=== PATIENT | male | born 1985 | race Caucasian/White ===

== ENCOUNTER 2018-11-18 17:49 | Emergency (ER) | payer MEDICAID ==
[~2018-11-18] VITALS: Ht 185.4 cm; Wt 108.9 kg
[2018-11-18 19:21] LABS: BASOPHILS ABSOLUTE AUTO 0.05 K/mm3 (0.00-0.23); BASOPHILS PERCENT AUTO 0 % (0-2); EOSINOPHILS ABSOLUTE AUTO 0.21 K/mm3 (0.00-0.68); EOSINOPHILS PERCENT AUTO 1 % (0-6); Hematocrit 45.8 % (37.0-53.0); Hemoglobin 15.8 g/dL (13.5-17.5); IMMATURE GRAN ABSOLUTE AUTO 0.06 K/mm3 (0.00-0.10); IMMATURE GRAN PERCENT AUTO 0 % (0-1); LYMPHOCYTES ABSOLUTE AUTO 1.93 K/mm3 (0.84-5.20); LYMPHOCYTES PERCENT AUTO 13 % (21-46); MONOCYTES ABSOLUTE AUTO 1.56 K/mm3 (0.16-1.47); MONOCYTES PERCENT AUTO 10 % (4-13); Mean Corpuscular HGB 31.7 pg (26.0-34.0); Mean Corpuscular HGB Conc 34.5 g/dL (31.5-36.5); Mean Corpuscular Volume 92 fL (80-100); Mean Platelet Volume 9.6 fL (9.1-12.4); NEUTROPHILS ABSOLUTE AUTO 11.33 K/mm3 (1.96-9.15); NEUTROPHILS PERCENT AUTO 75 % (41-73); Platelet Count 181 K/mm3 (150-400); RDW Coefficient Variation 12.6 % (11.7-14.2); RDW Standard Deviation 42.7 fL (35.1-46.3); Red Blood Cell Count 4.98 M/mm3 (4.30-5.90); White Blood Cell Count 15.14 K/mm3 (4.00-11.30)
[2018-11-18 19:41] LABS: Anion Gap 6 mmol/L (6-16); Blood Urea Nitrogen 12 mg/dL (8-24); Bun/Creatinine Ratio 12.9 (12.0-20.0); CO2, Blood 27 mmol/L (21-32); Calcium, Blood 8.5 mg/dL (8.5-10.1); Chloride, Blood 103 mmol/L (98-108); Creatinine, Blood 0.93 mg/dL (0.60-1.20); Glomerular Filtration Rate >60 (60-); Glucose, Blood 88 mg/dL (70-99); Potassium, Blood 3.9 mmol/L (3.5-5.5); Sodium, Blood 136 mmol/L (136-145)
[2018-11-18] MEDS ORDERED: Prednisone20 MG PO (20:05)
[2018-11-18] MEDS ORDERED: Cleocin HCl150 MG PO (20:57)
== END 2018-11-18 21:15 | disposition home or self-care (01) ==
LOC: ER 17:49
PROVIDERS: Physician Assistant
DX: J36 Peritonsillar abscess (principal); F17.210 Nicotine dependence, cigarettes, uncomplicated
CPT/HCPCS: 36415; 70491; 80048; 85025; 87081; 87430; 96365-59; 96375-59; 99284-25; J0295; J1100; J1885; J2405; J7030; Q9967

== ENCOUNTER 2018-11-19 23:09 | Observation (INO) | payer SELFPAY ==
[~2018-11-19] VITALS: Ht 185.4 cm; Wt 111.1 kg
[~2018-11-19 23:09] MED LIST: Cleocin HCl150 MG PO; Prednisone20 MG PO
[2018-11-20 01:15] LABS: BASOPHILS ABSOLUTE AUTO 0.03 K/mm3 (0.00-0.23); BASOPHILS PERCENT AUTO 0 % (0-2); EOSINOPHILS ABSOLUTE AUTO 0.01 K/mm3 (0.00-0.68); EOSINOPHILS PERCENT AUTO 0 % (0-6); Hematocrit 46.6 % (37.0-53.0); Hemoglobin 16.3 g/dL (13.5-17.5); IMMATURE GRAN ABSOLUTE AUTO 0.16 K/mm3 (0.00-0.10); IMMATURE GRAN PERCENT AUTO 1 % (0-1); LYMPHOCYTES ABSOLUTE AUTO 1.23 K/mm3 (0.84-5.20); LYMPHOCYTES PERCENT AUTO 6 % (21-46); MONOCYTES ABSOLUTE AUTO 0.86 K/mm3 (0.16-1.47); MONOCYTES PERCENT AUTO 5 % (4-13); Mean Corpuscular HGB 31.3 pg (26.0-34.0); Mean Corpuscular Volume 90 fL (80-100); Mean Platelet Volume 9.6 fL (9.1-12.4); NEUTROPHILS ABSOLUTE AUTO 16.93 K/mm3 (1.96-9.15); NEUTROPHILS PERCENT AUTO 88 % (41-73); Platelet Count 232 K/mm3 (150-400); RDW Coefficient Variation 12.4 % (11.7-14.2); RDW Standard Deviation 41.1 fL (35.1-46.3); White Blood Cell Count 19.22 K/mm3 (4.00-11.30)
[2018-11-20 01:33] LABS: Alanine Aminotransfer (ALT/SGP 45 U/L (12-78); Albumin, Blood 3.9 g/dL (3.4-5.0); Albumin/Globulin Ratio 0.9 (0.8-1.8); Alk Phos 78 U/L (50-136); Anion Gap 8 mmol/L (6-16); Aspartate Aminotrans (AST/SGOT 20 U/L (12-37); Bilirubin, Total 0.2 mg/dL (0.1-1.0); Blood Urea Nitrogen 19 mg/dL (8-24); Bun/Creatinine Ratio 29.1 (12.0-20.0); CO2, Blood 24 mmol/L (21-32); Chloride, Blood 108 mmol/L (98-108); Creatinine, Blood 0.65 mg/dL (0.60-1.20); Globulin, Blood 4.3 g/dL (2.2-4.0); Glomerular Filtration Rate >60 (60-); Glucose, Blood 120 mg/dL (70-99); Potassium, Blood 4.3 mmol/L (3.5-5.5); Sodium, Blood 140 mmol/L (136-145); Total Protein, Blood 8.2 g/dL (6.4-8.2)
--- NOTE | 2018-11-20 04:27 | NUR ---
SHIFT SUMMARY ED ADMIT. SETTLED INTO ROOM. PATIENT DENIES NAUSEA AND SHORTNESS OF BREATH. MEDICATED X1 FOR PAIN. PATIENT INDEPENDENT IN THE ROOM. CALL LIGHT IN REACH, WILL CONTINUE TO MONITOR UNTIL REPORT GIVEN TO ONCOMING SHIFT.
[2018-11-20 04:48] LABS: BASOPHILS ABSOLUTE AUTO 0.05 K/mm3 (0.00-0.23); BASOPHILS PERCENT AUTO 0 % (0-2); EOSINOPHILS PERCENT AUTO 0 % (0-6); Hemoglobin 15.5 g/dL (13.5-17.5); IMMATURE GRAN PERCENT AUTO 1 % (0-1); LYMPHOCYTES ABSOLUTE AUTO 1.43 K/mm3 (0.84-5.20); LYMPHOCYTES PERCENT AUTO 8 % (21-46); MONOCYTES ABSOLUTE AUTO 0.93 K/mm3 (0.16-1.47); MONOCYTES PERCENT AUTO 6 % (4-13); Mean Corpuscular HGB 31.4 pg (26.0-34.0); Mean Corpuscular HGB Conc 33.7 g/dL (31.5-36.5); Mean Platelet Volume 9.5 fL (9.1-12.4); NEUTROPHILS ABSOLUTE AUTO 14.53 K/mm3 (1.96-9.15); NEUTROPHILS PERCENT AUTO 85 % (41-73); Platelet Count 229 K/mm3 (150-400); RDW Coefficient Variation 12.5 % (11.7-14.2); RDW Standard Deviation 43.3 fL (35.1-46.3); Red Blood Cell Count 4.93 M/mm3 (4.30-5.90); White Blood Cell Count 17.04 K/mm3 (4.00-11.30)
[2018-11-20 04:49] LABS: Mean Corpuscular Volume 93 fL (80-100)
--- NOTE | 2018-11-20 17:43 | NUR ---
SHIFT SUMMARY PATIENT A&O X4, INDEPENDENT IN THE ROOM. C/O OF NECK PAIN THROUGHOUT THE SHIFT. LEFT TONSILL VERY SWOLLEN. RN MEDICATED PER E OCT. DENIES ANY SOB. MEDICATED X1 FOR NAUSEA. DR. DOUGLASS IN TODAY. NO ACUTE CHANGES. RN WILL CONTINUE TO MONITOR.
--- NOTE | 2018-11-20 22:48 | NUR ---
PT C/O NAUSEA FEELING WITHOUT EMESIS AND NON RADIATING CHESTPAIN. PT TALKING IN CALM VOICE, NO DIAPHRESIS NOTED. VITAL SIGNS STABLE. PT GIVEN ZOFRAN 4MG IVP AND ENCOURAGED TO AVOID SODA POP AND WATER FOR NEXT 60 MINUTES. CONTINUE MONITORING.
--- NOTE | 2018-11-21 01:00 | NUR ---
[id number] PT FELT RELIEF WITH ZOFRAN. RESTING QUIETLY IN ROOM LEFT SIDE IN BED.
--- NOTE | 2018-11-21 03:53 | NUR ---
33 Y/O MALE RESTED QUIETLY AFTER MIDNIGHT. PT WAS GIVEN ZOFRAN EARLIER SHIFT FOR NAUSEA WITH RELIEF FELT. PTS HAD ADEQUATE PAIN RELIEF AFTER ULTRAM 50MG GIVEN THROAT DISCOMFORT. PT ABLE TO AMBULATE AROUND IN ROOM. PTS BED IN LOW POSITION, CALL LIGHT AT BEDSIDE.
[2018-11-21] MEDS ORDERED: PRED20 PO (11:50)
[2018-11-21] MEDS ORDERED: AMOC200S75 PO (11:52)
[2018-11-21] MEDS ORDERED: HURRICAINE ONE1 EACH PO (11:54)
[2018-11-21] MEDS ORDERED: ONDA4ODT MM (11:55)
--- NOTE | 2018-11-21 12:40 | NUR ---
PATIENT A&O X4, INDEPENDENT IN THE ROOM. ALL DISCHARGE INFORMATION REVIEWED. MEDICATIONS FAXED TO [facility] ON [address]. MEDICATION VOUCHER SENT WITH PATIENT, SIGNED BY JAVA APPLICATION DEVELOPER. IV D/C, [place]. PATIENT WALKED OUT WITH ALL BELONGINGS IN HAND. FAMILY AT HIS SIDE.
== END 2018-11-21 12:36 | disposition home or self-care (01) ==
LOC: ER 23:09 → MEDS 23:10 → ENPENDDIS 11-21 10:37 → MEDS 11-21 12:36
PROVIDERS: Emergency Medicine; ADMIT Hospitalist
DX: A41.9 Sepsis, unspecified organism (principal); J36 Peritonsillar abscess; E66.3 Overweight; F17.210 Nicotine dependence, cigarettes, uncomplicated; Z68.32 Body mass index [BMI] 32.0-32.9, adult
CPT/HCPCS: 36415; 80053; 82947; 83605; 85025; 96361; 96365; 96366; 96367; 96375; 96376; 99284-25; G0378; J0295; J0696; J2405; J2540; J2930; J3010; J7030; J7050

== ENCOUNTER 2018-11-22 22:22 | Emergency (ER) | payer OTHER ==
[~2018-11-22] VITALS: Ht 185.4 cm; Wt 108.9 kg
[~2018-11-22 22:22] MED LIST changes: +AMOC200S75 PO; +HURRICAINE ONE1 EACH PO; +ONDA4ODT MM; +PRED20 PO
[2018-11-22 23:53] LABS: BASOPHILS ABSOLUTE AUTO 0.06 K/mm3 (0.00-0.23); BASOPHILS PERCENT AUTO 1 % (0-2); EOSINOPHILS ABSOLUTE AUTO 0.07 K/mm3 (0.00-0.68); EOSINOPHILS PERCENT AUTO 1 % (0-6); Hematocrit 46.5 % (37.0-53.0); Hemoglobin 16.1 g/dL (13.5-17.5); Mean Corpuscular HGB 31.2 pg (26.0-34.0); Mean Corpuscular HGB Conc 34.6 g/dL (31.5-36.5); Mean Platelet Volume 9.3 fL (9.1-12.4); Platelet Count 248 K/mm3 (150-400); RDW Coefficient Variation 12.2 % (11.7-14.2); RDW Standard Deviation 40.3 fL (35.1-46.3); Red Blood Cell Count 5.16 M/mm3 (4.30-5.90); White Blood Cell Count 12.98 K/mm3 (4.00-11.30)
[2018-11-22 23:56] LABS: IMMATURE GRAN ABSOLUTE AUTO 0.43 K/mm3 (0.00-0.10); IMMATURE GRAN PERCENT AUTO 3 % (0-1); LYMPHOCYTES ABSOLUTE AUTO 3.34 K/mm3 (0.84-5.20); LYMPHOCYTES PERCENT AUTO 26 % (21-46); MONOCYTES ABSOLUTE AUTO 1.39 K/mm3 (0.16-1.47); MONOCYTES PERCENT AUTO 11 % (4-13); Mean Corpuscular Volume 90 fL (80-100); NEUTROPHILS ABSOLUTE AUTO 7.69 K/mm3 (1.96-9.15); NEUTROPHILS PERCENT AUTO 59 % (41-73)
[2018-11-23 00:11] LABS: Alanine Aminotransfer (ALT/SGP 71 U/L (12-78); Albumin, Blood 3.5 g/dL (3.4-5.0); Albumin/Globulin Ratio 1.1 (0.8-1.8); Alk Phos 69 U/L (50-136); Anion Gap 7 mmol/L (6-16); Aspartate Aminotrans (AST/SGOT 32 U/L (12-37); Bilirubin, Total 0.2 mg/dL (0.1-1.0); Blood Urea Nitrogen 23 mg/dL (8-24); Bun/Creatinine Ratio 31.7 (12.0-20.0); CO2, Blood 27 mmol/L (21-32); Calcium, Blood 8.4 mg/dL (8.5-10.1); Chloride, Blood 107 mmol/L (98-108); Creatinine, Blood 0.73 mg/dL (0.60-1.20); Globulin, Blood 3.3 g/dL (2.2-4.0); Glomerular Filtration Rate >60 (60-); Glucose, Blood 88 mg/dL (70-99); Potassium, Blood 3.6 mmol/L (3.5-5.5); Sodium, Blood 141 mmol/L (136-145); Total Protein, Blood 6.8 g/dL (6.4-8.2)
[2018-11-23 00:45] LABS: Influenza A Negative (NEGATIVE); Influenza B Negative (NEGATIVE)
== END 2018-11-23 03:05 | disposition home or self-care (01) ==
LOC: ER 22:22
PROVIDERS: Emergency Medicine
DX: J36 Peritonsillar abscess (principal); Z91.041 Radiographic dye allergy status; Z79.899 Other long term (current) drug therapy; Z79.52 Long term (current) use of systemic steroids; G43.909 Migraine, unspecified, not intractable, without status migrainosus; F17.210 Nicotine dependence, cigarettes, uncomplicated
CPT/HCPCS: 36415; 70491; 71046; 80053; 85025; 87804; 96365-59; 96375-59; 99284-25; A9270-GY; J1100; J1885; J2270; J2405; J7030; Q9967

== ENCOUNTER 2018-12-23 11:10 | Observation (INO) | payer OTHER ==
[~2018-12-23] VITALS: Ht 185.4 cm; Wt 116.6 kg
[2018-12-23 11:56] LABS: BASOPHILS ABSOLUTE AUTO 0.03 K/mm3 (0.00-0.23); BASOPHILS PERCENT AUTO 0 % (0-2); EOSINOPHILS ABSOLUTE AUTO 0.18 K/mm3 (0.00-0.68); EOSINOPHILS PERCENT AUTO 3 % (0-6); Hematocrit 48.1 % (37.0-53.0); Hemoglobin 16.9 g/dL (13.5-17.5); IMMATURE GRAN ABSOLUTE AUTO 0.02 K/mm3 (0.00-0.10); IMMATURE GRAN PERCENT AUTO 0 % (0-1); LYMPHOCYTES ABSOLUTE AUTO 1.02 K/mm3 (0.84-5.20); LYMPHOCYTES PERCENT AUTO 14 % (21-46); MONOCYTES ABSOLUTE AUTO 0.74 K/mm3 (0.16-1.47); MONOCYTES PERCENT AUTO 10 % (4-13); Mean Corpuscular HGB Conc 35.1 g/dL (31.5-36.5); Mean Corpuscular Volume 88 fL (80-100); Mean Platelet Volume 9.2 fL (9.1-12.4); NEUTROPHILS ABSOLUTE AUTO 5.13 K/mm3 (1.96-9.15); NEUTROPHILS PERCENT AUTO 72 % (41-73); Platelet Count 172 K/mm3 (150-400); RDW Coefficient Variation 12.7 % (11.7-14.2); RDW Standard Deviation 41.1 fL (35.1-46.3); Red Blood Cell Count 5.46 M/mm3 (4.30-5.90); White Blood Cell Count 7.12 K/mm3 (4.00-11.30)
[2018-12-23 12:17] LABS: Alanine Aminotransfer (ALT/SGP 51 U/L (12-78); Albumin, Blood 3.8 g/dL (3.4-5.0); Albumin/Globulin Ratio 1.2 (0.8-1.8); Alk Phos 76 U/L (50-136); Anion Gap 5 mmol/L (6-16); Aspartate Aminotrans (AST/SGOT 26 U/L (12-37); Bilirubin, Total 0.8 mg/dL (0.1-1.0); Blood Urea Nitrogen 10 mg/dL (8-24); Bun/Creatinine Ratio 15.2 (12.0-20.0); CO2, Blood 26 mmol/L (21-32); Calcium, Blood 8.5 mg/dL (8.5-10.1); Chloride, Blood 108 mmol/L (98-108); Creatinine, Blood 0.66 mg/dL (0.60-1.20); Globulin, Blood 3.3 g/dL (2.2-4.0); Glomerular Filtration Rate >60 (60-); Glucose, Blood 83 mg/dL (70-99); Potassium, Blood 3.8 mmol/L (3.5-5.5); Sodium, Blood 139 mmol/L (136-145); Total Protein, Blood 7.1 g/dL (6.4-8.2)
[2018-12-23] MEDS ORDERED: VARE1 PO (13:48)
[2018-12-23] MEDS ORDERED: IBUP800 PO (13:48)
[2018-12-23] MEDS ORDERED: Augmentin 875-1 EACH PO (13:49)
[2018-12-23] MEDS ORDERED: Percocet 10-321 EACH PO (13:49)
--- NOTE | 2018-12-23 16:12 | NUR ---
ER ADMIT PATIENT ARRIVED FROM ED TO ROOM 357. A&O IND IN ROOM. VITALS STABLE. HE REPORTS PAIN 7/10 IN THROAT AND 8/10 IN HIS CHEST THAT HE SAYS FEELS LIKE A HARD SQUEEZING PAIN. ORDER NOTED FOR AN ECHO. NOTIFIED [employer] NICOLE AZRA AND THE ECHO TECHS HAVE LEFT FOR TODAY BUT WILL DO HIS ECHO FIRST THING IN THE MORNING. TELE ON PATIENT. NO EVENTS NOTED. PATIENT NOW OUTSIDE TO GET HIS BELONGINGS FROM HIS CAR.
--- NOTE | 2018-12-23 18:45 | NUR ---
SHIFT SUMMARY PATIENT MEDICATED FOR CONTINUING CHEST PAIN WITH HOME DOSE PERCOCET WHICH PROVIDES SOME RELIEF. VSS AND NO EVENTS PER TELEMETRY. HOME DOSE ABX RESTARTED WELL DUE TO RECENT PERIDONTAL ABCESS. ECHO SCHEDULED FOR AM
--- NOTE | 2018-12-24 06:16 | NUR ---
SHIFT SUMMARY PT SLEPT FAIR, MEDICATED X1 FOR PAIN. PT C/O THIS AM OF SOME CHEST TIGHTNESS AND HEAVINESS. HOSPITALIST CALLED AND EKG OBTAINED. DENIES SHORTNESS OF BREATH, VSS. TELE SHOWS NSR. TROPONIN HAS BEEN TRENDING DOWN AND IS WNL. WILL CONTINUE TO MONITOR.
--- NOTE | 2018-12-24 21:27 | NUR ---
PT TO HAVE STRESS TEST TOMORROW AM, HOWEVER, HAS ALLERGY TO IODINE. HOSPITALIST SPORTS PHYSIOTHERAPIST NOTIFIED OF IODINE ALLERDY PROTOCOL FOR STRESS TEST AND THE MEDICATIONS THAT NEED TO BE ORDERED, BUT STATES UNABLE TO ORDER BECAUSE THE ORDERING DR OF STRESS TEST NEEDS TO ORDER THE PROTOCOL. MESSAGE LEFT FOR ORDERING PROVIDER TO PLEASE CALL MEDICAL UNIT FOR PTS IODINE ALLERGY PROTOCOL ORDER.
--- NOTE | 2018-12-25 05:35 | NUR ---
SHIFT SUMMARY PT SLEPT WELL DURING THE NIGHT. RECEIVED PAIN MEDICATION X1 THIS SHIFT. ALSO STARTED PROTOCOL FOR IODINE ALLERGY THIS AM. PT TO HAVE STRESS TEST THIS AFTERNOON. NO ACUTE EVENTS NOTED DURING THE NIGHT, WILL CONTINUE TO MONITOR.
--- NOTE | 2018-12-25 15:47 | NUR ---
SHIFT SUMMARY PATIENT DISCHARGED, AMBULATED SELF OUT OF THE HOSPITAL. ABLE TO MAKE HIS NEEDS KNOWN. FOLLOW UP APT SCHEDULED WITH PCP FOR 12/27. PATIENT STRESS TEST NEGATIVE. SANDRA STATED SHE WOULD FOLLOW UP WITH CTA RESULTS ON 12/26. NO ACUTE ISSUES NOTED.
== END 2018-12-25 15:40 | disposition home or self-care (01) ==
LOC: ER 11:10 → MEDS 11:11
PROVIDERS: Physician Assistant; ADMIT Internal Medicine
DX: R07.89 Other chest pain (principal); R77.8 Other specified abnormalities of plasma proteins; J36 Peritonsillar abscess; F17.210 Nicotine dependence, cigarettes, uncomplicated; E66.9 Obesity, unspecified; Z91.041 Radiographic dye allergy status; Z79.899 Other long term (current) drug therapy; Z90.49 Acquired absence of other specified parts of digestive tract; Z98.890 Other specified postprocedural states
CPT/HCPCS: 36415; 71046; 71275; 74175; 80053; 84484; 85025; 85379; 93005; 93010; 93017; 93306; 94762; 96361; 96374; 96375; 99285-25; G0378; J1100; J1885; J2405; J7030; J7512; Q0163; Q9967

== ENCOUNTER → 2019-01-17 | Outpatient (CLI) | payer OTHER ==
[~2019-01-17] MED LIST changes: +Augmentin 875-1 EACH PO; +IBUP800 PO; +Percocet 10-321 EACH PO; +VARE1 PO
[2019-01-24 05:11] LABS: COTININE None Detected (.); NICOTINE None Detected (.)
== END | disposition home or self-care (01) ==
LOC: LAB 15:17 → LAB SHORT 15:17 → EDSTATUS 01-18 13:05 → LAB FUT 01-18 13:05
PROVIDERS: Otolaryngology
DX: J36 Peritonsillar abscess (principal); F17.210 Nicotine dependence, cigarettes, uncomplicated
CPT/HCPCS: G0480

== ENCOUNTER 2019-02-20 06:04 | Day surgery (SDC) | payer OTHER ==
[~2019-02-20] VITALS: Ht 188 cm; Wt 117.5 kg
--- NOTE | 2019-02-20 07:03 | NUR ---
02/20/19 0703 Felicita Singleton 2 IV ATTEMPTS BY KDAlvaro, 1ST IN L HAND INFILTRATED, 2ND IN L HAND WAS SUCCESSFUL
== END 2019-02-20 09:22 | disposition home or self-care (01) ==
LOC: ORSCSDS 06:04
PROVIDERS: Otolaryngology
PROC: 0CTPXZZ Resection of Tonsils, External Approach (ICD-10-PCS; principal; 2019-02-20 08:00)
DX: J36 Peritonsillar abscess (principal); F17.210 Nicotine dependence, cigarettes, uncomplicated; E66.9 Obesity, unspecified; Z68.34 Body mass index [BMI] 34.0-34.9, adult
CPT/HCPCS: 88304; J0330; J1100; J1885; J2250; J2405; J2704; J3010; J7120

== ENCOUNTER 2019-09-15 22:42 | Emergency (ER) | payer OTHER ==
[~2019-09-15] VITALS: Ht 185.4 cm; Wt 127.0 kg
[2019-09-15] MEDS ORDERED: VENLAFAXINE HC150 MG PO (23:42)
== END 2019-09-16 01:13 | disposition home or self-care (01) ==
LOC: ER 22:42
DX: M25.562 Pain in left knee (principal); G43.909 Migraine, unspecified, not intractable, without status migrainosus; Z88.6 Allergy status to analgesic agent; Z91.09 Other allergy status, other than to drugs and biological substances; Z79.899 Other long term (current) drug therapy; Z87.891 Personal history of nicotine dependence
CPT/HCPCS: 73564; 96372; 99283-25; J1200; J1885

== ENCOUNTER 2019-11-05 12:06 | Day surgery (SDC) | payer OTHER ==
[~2019-11-05] VITALS: Ht 185.4 cm; Wt 124.0 kg
[~2019-11-05 12:06] MED LIST changes: +MELO7.5 PO; +VENLAFAXINE HC150 MG PO
[2019-11-05] MEDS ORDERED: Imitrex50 MG (12:52)
--- NOTE | 2019-11-05 13:02 | NUR ---
11/05/19 1302 Marisol Lovett BLOOD DRAWN FOR PRP, ANTICOAGLUANT ADDED, DELIVERED TO OR.
--- NOTE | 2019-11-05 15:01 | NUR ---
11/05/19 1501 Rama Castro 02 DC'D AT 1458 PATIENTS SATS REMAIN 91% ON ROOM AIR
--- NOTE | 2019-11-05 15:45 | NUR ---
11/05/19 1545 DEANNA PERDOMO VSS ON ROOM AIR. PATIENT C/O SEVERE PAIN ON ARRIVAL TO STEP DOWN. TREATED WITH FENTANYL AND NORCO PER MD ORDER (SEE OCT). PATIENT'S PAIN DOWN TO 5/10, TOLERABLE PER PATIENT. NAUSEA MILD ALSO, TOLERATING PO INTAKE WELL. DISCHARGE INSTRUCTIONS REVIEWED WITH PATIENT. PATIENT VERBALIZES UNDERSTANDING. COPY GIVEN TO PATIENT TO TAKE HOME. PATIENT STATES POST-PROCEDURE RIDE HOME HAS BEEN ARRANGED WITH MOTHER.
== END 2019-11-05 15:52 | disposition home or self-care (01) ==
LOC: ORSCSDS 12:06
PROVIDERS: Orthopaedic Surgery
PROC: 0SQD4ZZ Repair Left Knee Joint, Percutaneous Endoscopic Approach (ICD-10-PCS; principal; 2019-11-05 13:45)
DX: S83.282A Other tear of lateral meniscus, current injury, left knee, initial encounter (principal); M22.42 Chondromalacia patellae, left knee; F17.210 Nicotine dependence, cigarettes, uncomplicated; G47.33 Obstructive sleep apnea (adult) (pediatric); E66.01 Morbid (severe) obesity due to excess calories; Z68.36 Body mass index [BMI] 36.0-36.9, adult; Z79.899 Other long term (current) drug therapy
CPT/HCPCS: A9270-GY; C1713; J0171; J0690; J1100; J1885; J2250; J2405; J2704; J2795; J3010; J7120

== ENCOUNTER 2019-11-08 04:13 | Emergency (ER) | payer OTHER ==
[~2019-11-08] VITALS: Ht 185.4 cm; Wt 126.1 kg
[~2019-11-08 04:13] MED LIST changes: +Imitrex50 MG
[2019-11-08] MEDS ORDERED: Norco 5-325 Ta1 EACH PO (04:24)
[2019-11-08] MEDS ORDERED: MUSCLE RELAXER (04:25)
== END 2019-11-08 10:12 | disposition home or self-care (01) ==
LOC: ER 04:13
DX: G89.18 Other acute postprocedural pain (principal); M25.562 Pain in left knee; G43.909 Migraine, unspecified, not intractable, without status migrainosus; Z79.899 Other long term (current) drug therapy; Z87.891 Personal history of nicotine dependence
CPT/HCPCS: 73562-LT; 93971; 96374; 96375; 99284-25; J1170; J2405; J3010

== ENCOUNTER → 2020-01-03 | Outpatient (CLI) | payer OTHER ==
[~2020-01-03] MED LIST changes: +MUSCLE RELAXER; +Norco 5-325 Ta1 EACH PO
[2020-01-03 13:41] LABS: Source, Urine Voided
[2020-01-03 14:34] LABS: Bilirubin, Urine Neg (Neg); Blood, Urine Neg (Neg); Glucose Qualitative, Urine Neg (Neg); Ketones, Urine Neg (Neg); Leukocyte Esterase, Urine Neg (Neg); Nitrite, Urine Neg (Neg); Protein, Urine Neg (Neg); Specific Gravity, Urine 1.015 (1.003-1.022); Urobilinogen, Urine NORM (Normal); pH, Urine 6.5 (5.0-8.0)
[2020-01-03 14:44] LABS: Appearance, Urine Clear (Clear); Color, Urine Pale Yellow (P-Yellow)
== END | disposition home or self-care (01) ==
LOC: LAB SHORT 13:38 → LAB 13:38
PROVIDERS: Nurse Practitioner Family
DX: N20.1 Calculus of ureter (principal); R10.9 Unspecified abdominal pain
CPT/HCPCS: 81003

== ENCOUNTER 2020-11-28 09:16 | Emergency (ER) | payer OTHER ==
[~2020-11-28] VITALS: Ht 185.4 cm; Wt 132.9 kg
[2020-11-28] MEDS ORDERED: HYDPAM25 PO (09:31)
[2020-11-28] MEDS ORDERED: PRAZ1 PO (09:31)
[2020-11-28] MEDS ORDERED: VENL37.5 PO (09:31)
[2020-11-28] MEDS ORDERED: CYCL10 PO (09:32)
== END 2020-11-28 11:15 | disposition home or self-care (01) ==
LOC: ER 09:16
DX: M54.42 Lumbago with sciatica, left side (principal); Z88.6 Allergy status to analgesic agent; Z86.73 Personal history of transient ischemic attack (TIA), and cerebral infarction without residual deficits; Z79.899 Other long term (current) drug therapy; Z91.041 Radiographic dye allergy status
CPT/HCPCS: 72100; 96372; 99283-25; J1885

== ENCOUNTER 2021-01-19 08:12 | Day surgery (SDC) | payer OTHER ==
[~2021-01-19] VITALS: Ht 185.4 cm; Wt 131.6 kg
[~2021-01-19 08:12] MED LIST changes: +CYCL10 PO; +HYDPAM25 PO; +PRAZ1 PO; +VENL37.5 PO
--- NOTE | 2021-01-19 08:35 | NUR ---
01/19/21 0835 Felicita Singleton, RN CHARTING FOR PREOP
[2021-01-19] MEDS ORDERED: LOSA25 PO (08:53)
== END 2021-01-19 12:29 | disposition home or self-care (01) ==
LOC: ORSCSDS 08:12
PROVIDERS: Orthopaedic Surgery
PROC: 0SBD4ZZ Excision of Left Knee Joint, Percutaneous Endoscopic Approach (ICD-10-PCS; principal; 2021-01-19 09:30)
DX: M23.201 Derangement of unspecified lateral meniscus due to old tear or injury, left knee (principal); M94.262 Chondromalacia, left knee; M65.9 Synovitis and tenosynovitis, unspecified; I10 Essential (primary) hypertension; Z87.891 Personal history of nicotine dependence; G47.33 Obstructive sleep apnea (adult) (pediatric); E66.01 Morbid (severe) obesity due to excess calories; Z68.38 Body mass index [BMI] 38.0-38.9, adult; Z79.899 Other long term (current) drug therapy
CPT/HCPCS: J0171; J0690; J1100; J1885; J2250; J2405; J2704; J2795; J3010; J7120

== ENCOUNTER 2021-02-14 11:49 | Emergency (ER) | payer OTHER ==
[~2021-02-14] VITALS: Ht 185.4 cm; Wt 131.5 kg
[~2021-02-14 11:49] MED LIST changes: +LOSA25 PO
[2021-02-14] MEDS ORDERED: GUAI600T33 PO (14:31)
[2021-02-14] MEDS ORDERED: ACET500 PO (14:31)
== END 2021-02-14 15:13 | disposition home or self-care (01) ==
LOC: ER 11:49
DX: U07.1 COVID-19 (principal); Z79.899 Other long term (current) drug therapy
CPT/HCPCS: 99284; A9270

== ENCOUNTER 2021-02-16 17:45 | Emergency (ER) | payer OTHER ==
[~2021-02-16] VITALS: Ht 185.4 cm; Wt 131.5 kg
[~2021-02-16 17:45] MED LIST changes: +ACET500 PO; +GUAI600T33 PO
[2021-02-16] MEDS ORDERED: KETO10 PO (18:17)
[2021-02-16] MEDS ORDERED: ONDA4ODT MM (18:17)
== END 2021-02-16 21:52 | disposition home or self-care (01) ==
LOC: ER 17:45
DX: U07.1 COVID-19 (principal); Z79.899 Other long term (current) drug therapy
CPT/HCPCS: 96374; 96375; 99283-25; J1885; J2405; J7030

== ENCOUNTER 2021-02-18 16:05 | Emergency (ER) | payer OTHER ==
[~2021-02-18] VITALS: Ht 185.4 cm; Wt 131.5 kg
[~2021-02-18 16:05] MED LIST changes: +KETO10 PO
== END 2021-02-18 16:40 | disposition home or self-care (01) ==
LOC: ER 16:05
DX: U07.1 COVID-19 (principal)
CPT/HCPCS: 99283

== ENCOUNTER 2021-10-11 14:29 | Emergency (ER) | payer OTHER ==
[~2021-10-11] VITALS: Ht 185.4 cm; Wt 135.2 kg
[2021-10-11 15:30] LABS: BASOPHILS ABSOLUTE AUTO 0.06 K/mm3 (0.00-0.23); BASOPHILS PERCENT AUTO 1 % (0-2); EOSINOPHILS ABSOLUTE AUTO 0.75 K/mm3 (0.00-0.68); EOSINOPHILS PERCENT AUTO 8 % (0-6); Hemoglobin 16.4 g/dL (13.5-17.5); IMMATURE GRAN ABSOLUTE AUTO 0.04 K/mm3 (0.00-0.10); IMMATURE GRAN PERCENT AUTO 0 % (0-1); LYMPHOCYTES ABSOLUTE AUTO 2.15 K/mm3 (0.84-5.20); LYMPHOCYTES PERCENT AUTO 24 % (21-46); MONOCYTES ABSOLUTE AUTO 0.68 K/mm3 (0.16-1.47); MONOCYTES PERCENT AUTO 8 % (4-13); Mean Corpuscular HGB 31.5 pg (26.0-34.0); Mean Corpuscular HGB Conc 35.7 g/dL (31.5-36.5); Mean Corpuscular Volume 89 fL (80-100); Mean Platelet Volume 9.4 fL (9.1-12.4); NEUTROPHILS ABSOLUTE AUTO 5.28 K/mm3 (1.96-9.15); NEUTROPHILS PERCENT AUTO 59 % (41-73); Platelet Count 200 K/mm3 (150-400); RDW Coefficient Variation 12.1 % (11.7-14.2); RDW Standard Deviation 39.5 fL (35.1-46.3); White Blood Cell Count 8.96 K/mm3 (4.00-11.30)
[2021-10-11 15:38] LABS: Alanine Aminotransfer (ALT/SGP 129 U/L (12-78); Albumin, Blood 3.7 g/dL (3.4-5.0); Albumin/Globulin Ratio 1.1 (0.8-1.8); Alk Phos 86 U/L (50-136); Anion Gap 5 mmol/L (6-16); Aspartate Aminotrans (AST/SGOT 67 U/L (12-37); Bilirubin, Total 0.3 mg/dL (0.1-1.0); Blood Urea Nitrogen 12 mg/dL (8-24); Bun/Creatinine Ratio 16.9 (12.0-20.0); CO2, Blood 25 mmol/L (21-32); Calcium, Blood 8.3 mg/dL (8.5-10.1); Chloride, Blood 109 mmol/L (98-108); Creatinine, Blood 0.71 mg/dL (0.60-1.20); Globulin, Blood 3.5 g/dL (2.2-4.0); Glomerular Filtration Rate >60 (60-); Glucose, Blood 146 mg/dL (70-99); Potassium, Blood 3.5 mmol/L (3.5-5.5); Sodium, Blood 139 mmol/L (136-145); Total Protein, Blood 7.2 g/dL (6.4-8.2)
== END 2021-10-11 18:12 | disposition home or self-care (01) ==
LOC: ER 14:29
PROVIDERS: Physician Assistant
DX: M94.0 Chondrocostal junction syndrome [Tietze] (principal); Z87.891 Personal history of nicotine dependence; Z79.899 Other long term (current) drug therapy; Z91.041 Radiographic dye allergy status
CPT/HCPCS: 36415; 71046; 71250; 74176; 80053; 84484; 85025; 93005; 93010; 96374; 96375; 99285-25; J2270; J2405